=== PATIENT | female | born 1950 | race Caucasian/White ===

== ENCOUNTER 2019-05-10 09:58 | Day surgery (SDC) | payer MEDICARE ==
[~2019-05-10] VITALS: Ht 147.3 cm; Wt 70.5 kg
[~2019-05-10 09:58] MED LIST: AMIT25 PO; ASPI81EC PO; ATEN50; CALCAVITD PO; CEPH500 PO; CHOL10002 PO; CIPRO500 MG PO; CYAN1000 PO; CYCL10 PO; FLUO20; FLUR100 PO; Flagyl500 MG PO; GREEN TEA PO; HYDACE10B PO; HYDACE5 PO; HYDCHL50; IBUP400 PO; LEVSOD100 PO; LORA1 PO; MODA200; MORP15ER PO; OXYACE5T PO; PROM25 PO; PSYL5.85P PO; SULTRIDS PO; THYR60; TOCO400 PO; VITNEPH PO; Valium5 MG PO
[2019-05-10] MEDS ORDERED: AMLO10 PO (10:34)
[2019-05-10] MEDS ORDERED: BRINTELLIX20 MG PO (10:35)
[2019-05-10] MEDS ORDERED: HYDPAM25 PO (10:36)
--- NOTE | 2019-05-10 15:55 | NUR ---
PT UP TO RESTROOM, SLOW STEADY GAIT. GETS DRESSED WITH NO NEEDED ASSISTANCE. LEFT GROIN SITE REMAINS STABLE. SON ON HIS WAY TO DRIVE HER HOME. WILL CONTINUE TO MONITOR UNTIL DISCHARGE
--- NOTE | 2019-05-10 16:10 | NUR ---
IV DC'D, CATH INTACT. PT GIVEN DC INSTRUCTIONS, VERBALIZED UNDERSTANDING. DENIES PAIN OR DISCOMFORT AT TIME OF D/C. AMBULATED AROUND THE DEPARTMENT WITHOUT DIFFICULTY. LEFT GROIN SITE CDI, NO BLEEDING OR SWELLING NOTED.
== END 2019-05-10 16:56 | disposition home or self-care (01) ==
LOC: MHTC 09:58
DX: I70.213 Atherosclerosis of native arteries of extremities with intermittent claudication, bilateral legs (principal); I70.8 Atherosclerosis of other arteries
CPT/HCPCS: 37225; 75625; 75716; 75774; 99152; 99153; C1714; C1760; C1769; C1884; C1887; C1894; C2623; J1644; J2250; J3010; J7030; Q9967

== ENCOUNTER 2019-05-16 09:41 | Day surgery (SDC) | payer MEDICARE ==
[~2019-05-16] VITALS: Ht 162.6 cm; Wt 69.1 kg
[~2019-05-16 09:41] MED LIST changes: +AMLO10 PO; +BRINTELLIX20 MG PO; -CHOL10002 PO; +HYDPAM25 PO; +VITAMIN D35000 UNIT PO
[2019-05-16] MEDS ORDERED: Super B-50 Com1 EACH PO (10:29)
[2019-05-16] MEDS ORDERED: BIOTIN1000 MCG PO (10:30)
[2019-05-16] MEDS ORDERED: Magnesium500 M1 PO (10:30)
[2019-05-16] MEDS ORDERED: VINEGAR PO (10:31)
--- NOTE | 2019-05-16 10:38 | NUR ---
PT INFORMED ON DELAY OF PROCEDURE START TIME TODAY. PT REQUEST FOR SON TO BE INFORMED SINCE HE IS HER RIDE HOME, PHONE CALL MADE, SON (YANY) AWARE. PT RESTING COMFORTABLY ON GURNEY AT THIS TIME. OLD BRUISING NOTED ON LEFT MID THIGH REGION UP AND ACROSS GROIN/PELVIC REGION FROM PROCEDURE LAST WEEK. PT HAD PERIPHERAL ANGIOGRAM WITH PVI.
--- NOTE | 2019-05-16 11:00 | NUR ---
DC SUMMARY PT'S GROIN ACCESS SITE C/D/I, PRESENTS WITHOUT BRUISING , TENDERNESS, OR WITH LUMP AT SITE. SITE SOFT TO TOUCH, DRESSING INTACT. VSS. DC INSTRUCTIONS PROIVIDED. XARELTO SCRIPT INCLUDED IN PACKET. IV DC'D. PT GIVEN AMBULATORY TRIAL AT 2100, SITE PRESENTS WITHOUT COMPLICATIONS. ALL BELONGINGS WITH PT WHEN SHE LEFT. TAKEN OUT BY W/C WITH FAMILY BESIDE HER TO TAKE HER HOME. DC VSS.
[2019-05-16] MEDS ORDERED: XARELTO2.5 MG PO (18:05)
--- NOTE | 2019-05-16 18:15 | NUR ---
SHIFT NOTE PT ARRIVES FROM OPERATIONS EXECUTIVE, WITH ANGIOSEAL TO RT GROIN, SOFT ON PALPATION NO DRAINAGE NOTED. PT A/O X4, ANSWERING QUESTIONS APPROPRIATELY. PEDAL AND TIBAL PULSES NOTED VIA DOPPLER TO BE FAINT BUT PRESENT. PT WITH D/C INSTRUCTIONS TO BE D/C POST RECOVERY
== END 2019-05-16 23:15 | disposition home or self-care (01) ==
LOC: MHTC 09:41 → PCU 17:48 → MHTC 23:15
DX: I70.223 Atherosclerosis of native arteries of extremities with rest pain, bilateral legs (principal)
CPT/HCPCS: 37224; 37228; 85347; 99152; 99153; A9270-GY; C1725; C1760; C1769; C1887; C1894; C2623; J1200; J1644; J2250; J3010; J7030; Q9967

== ENCOUNTER 2021-09-16 08:29 | Day surgery (SDC) | payer MEDICARE ==
[~2021-09-16] VITALS: Ht 157.5 cm; Wt 64.0 kg
[~2021-09-16 08:29] MED LIST changes: +BIOTIN1000 MCG PO; +Magnesium500 M1 PO; +Super B-50 Com1 EACH PO; +VINEGAR PO; +XARELTO2.5 MG PO
[2021-09-16] MEDS ORDERED: ATOR40TA PO (08:56)
[2021-09-16] MEDS ORDERED: ABILIFY MYCITE2 M2 PO (08:57)
[2021-09-16] MEDS ORDERED: ALEN70 PO (08:57)
[2021-09-16] MEDS ORDERED: Aspir 8181 MG PO (08:57)
[2021-09-16 09:16] LABS: BASOPHILS ABSOLUTE AUTO 0.05 K/mm3 (0.00-0.23); BASOPHILS PERCENT AUTO 1 % (0-2); EOSINOPHILS ABSOLUTE AUTO 0.09 K/mm3 (0.00-0.68); EOSINOPHILS PERCENT AUTO 1 % (0-6); Hematocrit 39.2 % (33.0-51.0); Hemoglobin 12.6 g/dL (11.5-16.0); IMMATURE GRAN ABSOLUTE AUTO 0.03 K/mm3 (0.00-0.10); IMMATURE GRAN PERCENT AUTO 0 % (0-1); LYMPHOCYTES ABSOLUTE AUTO 1.89 K/mm3 (0.84-5.20); LYMPHOCYTES PERCENT AUTO 27 % (21-46); MONOCYTES ABSOLUTE AUTO 0.46 K/mm3 (0.16-1.47); MONOCYTES PERCENT AUTO 7 % (4-13); Mean Corpuscular HGB 28.9 pg (26.0-34.0); Mean Corpuscular HGB Conc 32.1 g/dL (31.5-36.5); Mean Corpuscular Volume 90 fL (80-100); Mean Platelet Volume 9.3 fL (9.1-12.4); NEUTROPHILS ABSOLUTE AUTO 4.45 K/mm3 (1.96-9.15); NEUTROPHILS PERCENT AUTO 64 % (41-73); Platelet Count 274 K/mm3 (150-400); RDW Coefficient Variation 12.3 % (11.7-14.2); RDW Standard Deviation 40.5 fL (35.1-46.3); Red Blood Cell Count 4.36 M/mm3 (3.80-5.20); White Blood Cell Count 6.97 K/mm3 (4.00-11.30)
[2021-09-16 09:29] LABS: Alanine Aminotransfer (ALT/SGP 24 U/L (12-78); Albumin, Blood 3.1 g/dL (3.4-5.0); Alk Phos 71 U/L (50-136); Anion Gap 4 mmol/L (6-16); Aspartate Aminotrans (AST/SGOT 14 U/L (12-37); Bilirubin, Total 0.5 mg/dL (0.1-1.0); Blood Urea Nitrogen 13 mg/dL (8-24); Bun/Creatinine Ratio 21.3 (12.0-20.0); CO2, Blood 29 mmol/L (21-32); Calcium, Blood 8.8 mg/dL (8.5-10.1); Chloride, Blood 109 mmol/L (98-108); Creatinine, Blood 0.61 mg/dL (0.40-1.00); Globulin, Blood 3.2 g/dL (2.2-4.0); Glomerular Filtration Rate >60 (60-); Glucose, Blood 101 mg/dL (70-99); Potassium, Blood 3.6 mmol/L (3.5-5.5); Sodium, Blood 142 mmol/L (136-145); Total Protein, Blood 6.3 g/dL (6.4-8.2)
[2021-09-16 09:31] LABS: International Normalized Ratio 1.04; Prothrombin Time Results 10.9 Sec (9.7-11.5)
--- NOTE | 2021-09-16 11:54 | NUR ---
PT BACK FROM CATH LABE. PT REPORTS NAUSEA AND WAS MEDICATED WITH 4MG ZOFRAN IV. PT ALSO REPORTS A HEADACHE. WILL PLAN TO GIVE PO TYLENOL ONCE NAUSEA SUBSIDES. VSS. PT WITH R FEM ACCESS, SUCCESSFUL ANGIOSEAL IN PLACE. NO BLEEDING, OOZING OR HEMATOMA NOTED. WILL CONTINUE TO MONITOR.
[2021-09-16] MEDS ORDERED: CLOP75 PO (12:06)
--- NOTE | 2021-09-16 14:06 | NUR ---
PT SITTING UP IN BED. R FEM ACCESS SITE REMAINS STABLE WITH NO BLEEDING, OOZING OR HEMATOMA NOTED. NEW RX FOR PLAVIX WAS CALLED INTO [facility] PER PT REQUEST. VSS. WILL CONTINUE TO MONITOR.
--- NOTE | 2021-09-16 15:15 | NUR ---
PT AMBULATED TO RESTROOM AND DRESSED SELF WITH NO COMPLICATIONS. PT R FEM ACCESS SITE REMAINS STABLE WITH NO BLEEDING, OOZING OR HEMATOMA NOTED. PT DENIES ANY PAIN. PT STATES HER UNDERSTANDING OF DC AND SITE CARE INSTRUCTIONS AND DENIES ANY QUESTIONS OR CONCERNS UPON DC. VSS. IV DCD WITH CATH INTACT. NEW RX CALLED INTO PHARMACY REQUESTED. PT TAKEN TO EXIT VIA WHEELCHAIR WHERE BROTHER WAS WAITING WITH VEHICLE.
== END 2021-09-16 15:30 | disposition home or self-care (01) ==
LOC: MHTC 08:29
PROVIDERS: Radiology Diagnostic Radiology
DX: I70.213 Atherosclerosis of native arteries of extremities with intermittent claudication, bilateral legs (principal); I10 Essential (primary) hypertension; I65.23 Occlusion and stenosis of bilateral carotid arteries; E78.5 Hyperlipidemia, unspecified; E03.9 Hypothyroidism, unspecified; Z87.891 Personal history of nicotine dependence
CPT/HCPCS: 76937; 80053; 85025; 85610; 99152; 99153; A9270; C1725; C1760; C1769; C1876; C1887; C1894; C2623; J1644; J2250; J2405; J3010; J7030; J7050; Q9967

== ENCOUNTER → 2025-05-23 | Outpatient (CLI) | payer MEDICARE ==
[~2025-05-23] MED LIST changes: +ABILIFY MYCITE2 M2 PO; +ALEN70 PO; +ATOR40TA PO; +Aspir 8181 MG PO; +CLOP75 PO
[2025-05-23 17:41] LABS: Creatinine, Urine Random 104.0 mg/dL (27.00-270.00); Microalb/Creat Ratio UR, Rand 15.865 mg/g (0.000-30.000); Microalbumin, Random Urine 16.5 mg/L (0.000-20.000)
== END ==
LOC: LAB 12:15 → LAB SHORT 12:15
PROVIDERS: Family Medicine
DX: I10 Essential (primary) hypertension (principal)
CPT/HCPCS: 82043; 82570